=== PATIENT | female | born 1970 | race Caucasian/White ===

== ENCOUNTER 2019-08-11 09:51 | Outpatient (REF) | payer MEDICAID, SELFPAY ==
[2019-08-11 21:52] LABS: Anion Gap 8.7 mmol/L (3-11); BUN 10 mg/dL (7-18); CO2 28.3 mmol/L (21.0-32.0); CREATININE 0.88 mg/dL (0.55-1.02); Calcium 8.6 mg/dL (8.5-10.1); Chloride 101 mmol/L (98-107); Glucose 143 mg/dL (70-100); Potassium 3.5 mmol/L (3.5-5.1); Sodium 138 mmol/L (136-145)
== END 2019-08-11 10:11 ==
LOC: NCHCN 09:51
PROVIDERS: PCP Family Medicine; Visit Provider Family Medicine
DX: E11.9 Type 2 diabetes mellitus without complications (principal); I10 Essential (primary) hypertension; K21.9 Gastro-esophageal reflux disease without esophagitis; Z00.00 Encounter for general adult medical examination without abnormal findings
CPT/HCPCS: 80048

== ENCOUNTER 2019-09-14 21:51 | Outpatient (REF) | payer MEDICAID, SELFPAY | END 2019-09-14 22:11 | LOC: NCHCN 21:51 | PROVIDERS: PCP Family Medicine; Visit Provider Internal Medicine | DX: R10.9 Unspecified abdominal pain (principal) | CPT/HCPCS: 87086 ==

== ENCOUNTER 2019-09-16 14:46 | Outpatient (REF) | payer MEDICAID, SELFPAY ==
[2019-09-16 22:28] LABS: Albumin 4.2 g/dL (3.4-5.0); Anion Gap 7.8 mmol/L (3-11); BUN 20 mg/dL (7-18); CO2 28.2 mmol/L (21.0-32.0); CREATININE 1.56 mg/dL (0.55-1.02); Calcium 9.2 mg/dL (8.5-10.1); Chloride 103 mmol/L (98-107); Estimated GFR 35.28 (mL/min/1.73m2); Glucose 92 mg/dL (70-100); PHOSPHORUS 3.1 mg/dL (2.6-4.7); Potassium 3.1 mmol/L (3.5-5.1); Sodium 139 mmol/L (136-145); TSH (W/Ref FT4) 3.14 uIU/mL (0.36-3.74)
== END 2019-09-16 15:06 ==
LOC: NCHCN 14:46
PROVIDERS: PCP Family Medicine; Visit Provider Family Medicine
DX: R53.83 Other fatigue (principal); R10.9 Unspecified abdominal pain; E11.9 Type 2 diabetes mellitus without complications
CPT/HCPCS: 80069; 84443

== ENCOUNTER 2019-09-24 12:08 | Outpatient (REF) | payer MEDICAID, SELFPAY ==
[2019-09-24 22:46] LABS: Anion Gap 7.6 mmol/L (3-11); BUN 13 mg/dL (7-18); CO2 31.4 mmol/L (21.0-32.0); CREATININE 1.23 mg/dL (0.55-1.02); Calcium 8.8 mg/dL (8.5-10.1); Chloride 105 mmol/L (98-107); Estimated GFR 46.41 (mL/min/1.73m2); Glucose 87 mg/dL (74-106); Potassium 3.3 mmol/L (3.5-5.1); Sodium 144 mmol/L (136-145)
== END 2019-09-24 12:28 ==
LOC: NCHCN 12:08
PROVIDERS: PCP Family Medicine; Visit Provider Registered Nurse
DX: I10 Essential (primary) hypertension (principal); R10.13 Epigastric pain; E11.9 Type 2 diabetes mellitus without complications; R07.89 Other chest pain
CPT/HCPCS: 80048

== ENCOUNTER 2019-10-23 10:49 | Outpatient (REF) | payer MEDICAID, SELFPAY ==
[2019-10-23 21:03] LABS: Anion Gap 11.6 mmol/L (3-11); BUN 12 mg/dL (7-18); CO2 29.4 mmol/L (21.0-32.0); CREATININE 1.08 mg/dL (0.55-1.02); Chloride 103 mmol/L (98-107); Estimated GFR 53.92 (mL/min/1.73m2); Glucose 97 mg/dL (74-106); Potassium 3.1 mmol/L (3.5-5.1); Sodium 144 mmol/L (136-145)
== END 2019-10-23 11:09 ==
LOC: NCHCN 10:49
PROVIDERS: PCP Family Medicine; Visit Provider Registered Nurse
DX: I10 Essential (primary) hypertension (principal)
CPT/HCPCS: 80048

== ENCOUNTER 2019-11-06 13:24 | Outpatient (REF) | payer MEDICAID, SELFPAY ==
[2019-11-06 21:31] LABS: Potassium 3.9 mmol/L (3.5-5.1)
== END 2019-11-06 13:44 ==
LOC: NCHCN 13:24
PROVIDERS: PCP Family Medicine; Visit Provider Registered Nurse
DX: E87.6 Hypokalemia (principal)
CPT/HCPCS: 84132

== ENCOUNTER 2020-02-09 08:19 | Outpatient (REF) | payer MEDICAID, SELFPAY ==
[2020-02-09 20:21] LABS: Anion Gap 8.6 mmol/L (3-11); BUN 13 mg/dL (7-18); CO2 31.4 mmol/L (21.0-32.0); CREATININE 1.04 mg/dL (0.55-1.02); Chloride 99 mmol/L (98-107); Estimated GFR 56.32 (mL/min/1.73m2); Glucose 115 mg/dL (74-106); Potassium 3.7 mmol/L (3.5-5.1); Sodium 139 mmol/L (136-145)
== END 2020-02-09 08:39 ==
LOC: NCHCN 08:19
PROVIDERS: PCP Family Medicine; Visit Provider Registered Nurse
DX: Z86.39 Personal history of other endocrine, nutritional and metabolic disease (principal)
CPT/HCPCS: 80048

== ENCOUNTER 2020-07-22 15:38 | Outpatient (REF) | payer MEDICAID, SELFPAY ==
[2020-07-22 22:15] LABS: BUN 10 mg/dL (7-18); CREATININE 1.07 mg/dL (0.55-1.02); Chloride 104 mmol/L (98-107); Estimated GFR 54.28 (mL/min/1.73m2); Glucose 95 mg/dL (74-106); Potassium 3.6 mmol/L (3.5-5.1); Sodium 141 mmol/L (136-145)
[2020-07-22 22:57] LABS: Hemoglobin A1C 5.4 % (<5.7)
== END 2020-07-22 15:58 ==
LOC: NCHCN 15:38
PROVIDERS: PCP Family Medicine; Visit Provider Registered Nurse
DX: I10 Essential (primary) hypertension (principal); Z86.39 Personal history of other endocrine, nutritional and metabolic disease
CPT/HCPCS: 80048; 83036

== ENCOUNTER 2020-10-20 22:15 | Outpatient (REF) | payer MEDICAID, SELFPAY ==
[2020-10-20 22:18] LABS: COMMENT (LAB VIEW ONLY) 62.44 mg/dL
[2020-10-24 12:38] LABS: Chlamydia Result Negative (Negative); GC Result Negative (Negative)
== END 2020-10-20 22:35 ==
LOC: NCHCN 22:15
PROVIDERS: PCP Family Medicine; Visit Provider Registered Nurse
DX: E11.9 Type 2 diabetes mellitus without complications (principal); Z11.3 Encounter for screening for infections with a predominantly sexual mode of transmission
CPT/HCPCS: 87491; 87591; 82043; 82570

== ENCOUNTER 2021-06-28 18:48 | Outpatient (REF) | payer MEDICAID, SELFPAY ==
--- NOTE | 2021-06-28 14:20 | PAPFT_PTH ---
PATIENT: Elysia Escobar LOC: [facility]#:[id number] AGE/SX: 51/F ROOM: RE06/28/[address]: Siobhan Torrez : 1970 BED: DIS: 06/28/2021 SPEC #: [id number] RECD: 06/29/21 13:00 STATUS: CHRISTEN LAMB #: [id number] RENATO: 06/28/21 14:[address]: Siobhan Torrez DEPT: [facility] Cytology RECD BY: Kristy Perea Tissues: 1 - CX/ENDOCX FOR PAP SMEARS Procedures: PAP THIN PREP/[facility] Screening HPV DNA PROBE Comments: [id number]
== END 2021-06-28 18:49 | disposition home or self-care (01) ==
LOC: NCHCN 18:48
PROVIDERS: PCP Family Medicine; Visit Provider Family Medicine
DX: Z12.4 Encounter for screening for malignant neoplasm of cervix (principal); Z00.00 Encounter for general adult medical examination without abnormal findings; Z11.51 Encounter for screening for human papillomavirus (HPV)
CPT/HCPCS: 88142; 87624

== ENCOUNTER 2022-08-14 14:07 | Outpatient (REF) | payer MEDICAID, SELFPAY ==
[2022-08-14 20:47] LABS: ALT 26 U/L (14-59); AST 26 U/L (15-37); Alkaline Phosphatase 99 U/L (46-116); BUN 32 mg/dL (7-18); Bilirubin, Total 0.8 mg/dL (0.2-1.0); CREATININE 1.5 mg/dL (0.55-1.02); Calcium 9.7 mg/dL (8.5-10.1); Calculated LDL 95 mg/dL (<100); Chloride 102 mmol/L (98-107); Cholesterol 201 mg/dL (<200); Estimated GFR 41.67 (mL/min/1.73m2); Glucose 105 mg/dL (74-106); HDL Cholesterol 64 mg/dL (40-60); Potassium 4.4 mmol/L (3.5-5.1); Sodium 137 mmol/L (136-145); Total Protein 8.3 g/dL (6.4-8.2); Triglyceride 210 mg/dL (<150)
== END 2022-08-14 14:08 | disposition home or self-care (01) ==
LOC: NCHCN 14:07
PROVIDERS: PCP Family Medicine; Visit Provider Family Medicine
DX: I10 Essential (primary) hypertension (principal); I25.10 Atherosclerotic heart disease of native coronary artery without angina pectoris
CPT/HCPCS: 80053; 80061

== ENCOUNTER 2024-04-08 18:24 | Outpatient (REF) | payer MEDICAID, SELFPAY ==
[2024-04-08 21:39] LABS: Hemoglobin A1C 8.3 % (<5.7)
[2024-04-08 21:41] LABS: Anion Gap 7.6 mmol/L (3-11); BUN 25 mg/dL (7-18); CO2 32.4 mmol/L (21.0-32.0); CREATININE 1.3 mg/dL (0.55-1.02); Calcium 9.1 mg/dL (8.5-10.1); Chloride 101 mmol/L (98-107); Estimated GFR 48.87 (mL/min/1.73m2); Glucose 160 mg/dL (74-106); Potassium 3.8 mmol/L (3.5-5.1); Sodium 141 mmol/L (136-145)
== END 2024-04-08 18:25 | disposition home or self-care (01) ==
LOC: NCHCN 18:24
PROVIDERS: PCP Family Medicine; Visit Provider Family Medicine
DX: I50.22 Chronic systolic (congestive) heart failure (principal); E11.9 Type 2 diabetes mellitus without complications
CPT/HCPCS: 80048; 83036